=== PATIENT | female | born 1945 | race Caucasian/White ===

== ENCOUNTER 2017-04-02 11:04 | Inpatient (IN) | payer MEDICARE, SELFPAY ==
[~2017-04-02] VITALS: Ht 149.9 cm; Wt 86.4 kg
[2017-04-02 11:46] LABS: HEMATOCRIT 42.6 % (34-45); HEMOGLOBIN 13.6 g/dL (11.2-15.7); MEAN CORPUSCULAR HEMOGLOBIN 29.6 pg (27.0-33.0); MEAN CORPUSCULAR HGB CONC 31.9 g/dL (32.0-36.0); MEAN CORPUSCULAR VOLUME 92.8 fL (79-95); RED BLOOD COUNT 4.59 x10_6/uL (3.9-5.2); RED CELL DISTRIBUTION WIDTH 13.9 % (11.7-14.4); WHITE BLOOD COUNT 7.3 x10_3/uL (4.0-10.0)
[2017-04-02 11:50] LABS: ALBUMIN 4.2 gm/dL (3.4-5.0); ALKALINE PHOSPHATASE 72 U/L (50-136); ALT/SGPT 16 U/L (3.5-33.9); AST/SGOT 22 U/L (7.04-26.96); BILIRUBIN,TOTAL 0.41 mg/dL (0.0-1.0); BLOOD UREA NITROGEN 14 mg/dL (7-18); CALCIUM 9.5 mg/dL (8.7-10.7); CARBON DIOXIDE 28 mmol/L (21-32); CREATININE 0.7 mg/dL (0.6-1.3); GLUCOSE,RANDOM 94 mg/dL (70-99); SODIUM 140 mmol/L (136-145)
[2017-04-02 11:51] LABS: PARTIAL THROMBOPLASTIN TIME 25.7 SECONDS (21.3-29.3); PROTHROMBIN TIME (PATIENT) 10.6 SECONDS (9.9-11.1)
[2017-04-02 11:55] LABS: BILIRUBIN,DIRECT < 0.20 mg/dL (0.0-0.30); DIGOXIN < 0.3 ng/ml (0.90-2.00)
[2017-04-02 12:24] LABS: CKMB 7.4 ng/ml (0.0-5.0); TROP-I < 0.30 NG/ML (0.00-0.30)
[2017-04-02 20:05] LABS: CKMB 7.2 ng/ml (0.0-5.0); TROP-I < 0.30 NG/ML (0.00-0.30)
[2017-04-03 01:58] LABS: CKMB 7.6 ng/ml (0.0-5.0); TROP-I < 0.30 NG/ML (0.00-0.30)
[2017-04-03 02:05] LABS: CREATININE 0.7 mg/dL (0.6-1.3); POTASSIUM 3.7 mmol/L (3.4-5.0)
[2017-04-03 02:10] LABS: MAGNESIUM 2.2 mg/dL (1.8-2.4)
[2017-04-03 07:39] LABS: AHDL CHOLESTEROL 72 mg/dL (>40); BLOOD UREA NITROGEN 12 mg/dL (7-18); CALCIUM 9.4 mg/dL (8.7-10.7); CARBON DIOXIDE 26 mmol/L (21-32); CHOLESTEROL 154 mg/dL (0-200); CREATININE 0.7 mg/dL (0.6-1.3); GLUCOSE,RANDOM 103 mg/dL (70-99); LDL CHOLESTEROL 71 mg/dL (0-99); MAGNESIUM 2.2 mg/dL (1.8-2.4); POTASSIUM 3.7 mmol/L (3.5-5.1); SODIUM 139 mmol/L (136-145); TRIGLYCERIDES 112 mg/dL (30-200)
[2017-04-03 07:55] LABS: CKMB 6.8 ng/ml (0.0-5.0); TROP-I < 0.30 NG/ML (0.00-0.30)
== END 2017-04-03 13:00 | disposition home or self-care (01) | DRG 191 ==
LOC: MS 11:04
PROVIDERS: Surgery; ADMIT Family Medicine
DX: J44.1 Chronic obstructive pulmonary disease with (acute) exacerbation (principal); I47.1 Supraventricular tachycardia; I50.9 Heart failure, unspecified; I11.0 Hypertensive heart disease with heart failure; E11.9 Type 2 diabetes mellitus without complications; R60.9 Edema, unspecified; Z83.3 Family history of diabetes mellitus; Z80.9 Family history of malignant neoplasm, unspecified; Z82.49 Family history of ischemic heart disease and other diseases of the circulatory system; R07.9 Chest pain, unspecified; Z88.5 Allergy status to narcotic agent; Z88.1 Allergy status to other antibiotic agents; Z88.0 Allergy status to penicillin; Z79.899 Other long term (current) drug therapy; Z79.84 Long term (current) use of oral hypoglycemic drugs
CPT/HCPCS: 36415; 71020; 80048; 80061; 80076; 80162; 80307; 82550; 82553; 82962; 83036; 83735; 83880; 84443; 85610; 85730; 93005; 93041; 93306; 94640; 94664; 99070